=== PATIENT | female | born 1980 | race Two or more races ===

== ENCOUNTER 2017-02-04 17:25 | Emergency (ER) | payer BC ==
[~2017-02-04] VITALS: Ht 160 cm; Wt 72.6 kg
--- NOTE | 2017-02-04 17:35 | NUR ---
PATIENT PRESENTS TO ER C/O ANXIETY. PATIENT IS A/OX 4, BREATHING EVEN AND UNLABORED ON ROOM AIR. NO SOB. VITALS STABLE. AWAITING MD ORDERS.
--- NOTE | 2017-02-04 17:44 | NUR ---
CALLED [facility] FOR PSYCH EVAL, ETA 1 HOUR
[2017-02-04] MEDS ORDERED: LORAZEPAM 1 MG TABLET PO ONE (18:00)
[2017-02-04] MEDS ORDERED: LORAZEPAM 1 MG TABLET ONE (18:01)
--- NOTE | 2017-02-04 18:10 | NUR ---
[facility]AN ADMINISTERED PO PER MD ORDERS
[2017-02-04 18:12] LABS: BASOPHILS # (AUTO) 0.3 /CMM (0.0-0.2); BASOPHILS % (AUTO) 3.2 % (0.0-2.0); EOSINOPHILS # (AUTO) 0.2 /CMM (0.0-0.7); EOSINOPHILS % (AUTO) 1.8 % (0.0-6.0); HEMATOCRIT 41 % (33-45); HEMOGLOBIN 13.7 g/dL (11.5-14.8); LYMPHOCYTES # (AUTO) 2.1 /CMM (0.8-4.8); LYMPHOCYTES % (AUTO) 21.3 % (20.0-44.0); MEAN CORPUSCULAR HEMOGLOBIN 32 PG (26.0-33.0); MEAN CORPUSCULAR HGB CONC 34 g/dl (31.0-36.0); MEAN CORPUSCULAR VOLUME 96 fL (82-100); MONOCYTES # (AUTO) 0.6 /CMM (0.1-1.30); MONOCYTES % (AUTO) 6.3 % (2.0-12.0); NEUTROPHILS # (AUTO) 6.9 /CMM (1.8-8.9); NEUTROPHILS % (AUTO) 67.4 % (43.0-81.0); PLATELET COUNT (AUTO) 254 /CMM (150-450); RDW COEFFICIENT OF VARIATION 14.1 (11.5-15.0); RED BLOOD CELL COUNT(AUTO) 4.24 MIL/uL (4.0-5.2); WHITE BLOOD COUNT (AUTO) 10.1 K/uL (4.3-11.0)
--- NOTE | 2017-02-04 18:15 | NUR ---
URINE OBTAINED AND SENT TO LAB.
[2017-02-04 18:19] LABS: APPEARANCE,URINE Clear (CLEAR); BILIRUBIN,URINE Negative (NEGATIVE); BLOOD, URINE Small Ery/uL (NEGATIVE); COLOR,URINE Yellow (YELLOW); KETONES,URINE Negative (NEGATIVE); LEUKOCYTE ESTERASE ,URINE Trace (NEGATIVE); NITRITE, URINE Negative (NEGATIVE); PROTEIN,URINE Trace mg/dl (NEGATIVE); UGLUCOSE Negative (NEGATIVE)
[2017-02-04 18:20] LABS: CALCIUM, SERUM 9.4 mg/dL (8.5-10.1); CARBON DIOXIDE 26 mmol/L (21-32); CHLORIDE 101 mmol/L (98-107); CREATININE 0.7 mg/dL (0.6-1.3); GLUCOSE 128 mg/dL (74-106); POTASSIUM 3.2 mmol/L (3.5-5.1); SODIUM SERUM 139 mmol/L (136-145); UREA NITROGEN, BLOOD 6 mg/dL (7-18)
[2017-02-04 18:26] LABS: ALANINE AMINOTRANSFERASE 203 U/L (12-78); ALBUMIN 3.6 g/dL (3.4-5.0); ALCOHOL, BLOOD < 3 mg/dL (0-0); ALKALINE PHOSPHATASE 101 U/L (46-116); ASPARTATE AMINOTRANSFERASE 258 U/L (15-37); BILIRUBIN,DIRECT 0.3 mg/dL (0.0-0.2); BILIRUBIN,TOTAL 1.3 mg/dL (0.2-1.0); TOTAL PROTEIN, SERUM 8.2 g/dL (6.4-8.2)
[2017-02-04 18:29] LABS: ACETAMINOPHEN < 2 ug/ml (10-30); SALICYLATE < 2.8 mg/dL (2.8-20.0)
--- NOTE | 2017-02-04 18:42 | NUR ---
[facility] AT BEDSIDE FOR PSYCH EVAL.
[2017-02-04 18:45] LABS: BACTERIA,URINE Few /HPF (None Seen); SQUAMOUS EPITHELIAL CELL,UR Few /HPF (None Seen)
[2017-02-04] MEDS ORDERED: POTASSIUM CHLORIDE 20 MEQ TAB.PRT.SR PO ONE ×2 (19:00)
--- NOTE | 2017-02-04 19:15 | NUR ---
ENDORSED TO [facility] FOR [facility].
--- NOTE | 2017-02-04 19:15 | NUR ---
PT APPEARS TO BE RESTING COMFORTABLY WITH NO S/S OF PAIN OR DISTRESS.
--- NOTE | 2017-02-04 20:03 | NUR ---
PT REC'D JUICE, A SANDWICH, JELLO, AND PUDDING.
--- NOTE | 2017-02-04 20:30 | NUR ---
SPOKE TO KAREEM GALDAMEZ AT [facility] RE: PT'S K+ LEVEL 3.2. DENICE WAS INFORMED THAT PT REC'D 40 MEQ K+ PO.
--- NOTE | 2017-02-04 20:32 | NUR ---
PT IS GOING TO [facility], PER MAGDIEL CUEVAS. PT WAS ACCEPTED.
--- NOTE | 2017-02-04 21:01 | NUR ---
REPORT KAREEM BURNETTE AT [facility].
--- NOTE | 2017-02-04 21:05 | NUR ---
Patient discharged to [facility] in stable condition. Written and verbal after care instructions given. Patient verbalizes understanding of instruction. PT LEFT WITH ALL PAPERWORK TO [facility]. PT WAS ACCEPTED BY DR. CORTEZ
[2017-02-04 21:09] VITALS: BP 127/85
== END 2017-02-04 21:09 ==
LOC: ER 17:27
DX: R45.851 Suicidal ideations (principal); E87.6 Hypokalemia; R74.0 Nonspecific elevation of levels of transaminase and lactic acid dehydrogenase [LDH]; F41.9 Anxiety disorder, unspecified; F32.9 Major depressive disorder, single episode, unspecified; E11.9 Type 2 diabetes mellitus without complications; Z88.8 Allergy status to other drugs, medicaments and biological substances
CPT/HCPCS: 36415; 80048; 80076; 80305; 80329; 81001; 84703; 85025; 99285; A4606 ×2; G0480 ×2; Z7610; 81000-TC

== ENCOUNTER 2019-08-04 01:59 | Emergency (ER) | payer BC, MEDICAID ==
[~2019-08-04] VITALS: Ht 167.6 cm; Wt 77.1 kg
[~2019-08-04 01:59] MED LIST: FLUO10CA26 PO; QUET25TA PO
--- NOTE | 2019-08-04 02:03 | NUR ---
PT CAME TO ER BED 3 C/O ALCHOL WITHDRAWALS. PT VERBALLY NON-RESPONSIVE TO STAFF WHEN ASKED QUESTIONS. PT HAS TREMORS. AAOX4. NO SOB. BREATHING EVENLY AND UNLABORED. CONNECTED TO MONITOR.
--- NOTE | 2019-08-04 02:09 | NUR ---
PT ABLE TO SPEAK ICELANDIC. STATES THAT "I DRINK ALL DAY EVERYDAY". STATES THAT SHE DRINKS BECAUSE SHE GETS INTO ARGUMENTS WITH HER MOM. 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
--- NOTE | 2019-08-04 02:34 | NUR ---
URINE COLLECTED FROM BED SWANSON AND SENT TO LAB FOR TESTING
--- NOTE | 2019-08-04 02:37 | NUR ---
BLOOD DRAWN BY SENIOR DIRECTOR OF STRATEGY AND SENT TO LAB.
[2019-08-04 02:59] LABS: APPEARANCE,URINE Slightly Cloudy (CLEAR); BILIRUBIN,URINE Negative (NEGATIVE); BLOOD, URINE Large Ery/uL (NEGATIVE); COLOR,URINE Yellow (YELLOW); KETONES,URINE Negative (NEGATIVE); LEUKOCYTE ESTERASE ,URINE Negative (NEGATIVE); NITRITE, URINE Negative (NEGATIVE); PH,URINE 5.5 (5.0-8.0); PROTEIN,URINE Negative (NEGATIVE); UGLUCOSE Negative (NEGATIVE); UROBILINOGEN,URINE 0.2 EU/dL (0.2)
[2019-08-04 03:00] LABS: BASOPHILS # (AUTO) 0.1 /CMM (0.0-0.2); BASOPHILS % (AUTO) 1.2 % (0.0-2.0); EOSINOPHILS % (AUTO) 4.5 % (0.0-6.0); HEMATOCRIT 41 % (33-45); HEMOGLOBIN 13.5 g/dL (11.5-14.8); LYMPHOCYTES # (AUTO) 3.5 /CMM (0.8-4.8); LYMPHOCYTES % (AUTO) 50.8 % (20.0-44.0); MEAN CORPUSCULAR HGB CONC 33 g/dl (31.0-36.0); MEAN CORPUSCULAR VOLUME 89 fL (82-100); MONOCYTES # (AUTO) 0.4 /CMM (0.1-1.30); MONOCYTES % (AUTO) 6.6 % (2.0-12.0); NEUTROPHILS # (AUTO) 2.5 /CMM (1.8-8.9); NEUTROPHILS % (AUTO) 36.9 % (43.0-81.0); PLATELET COUNT (AUTO) 402 /CMM (150-450); RED BLOOD CELL COUNT(AUTO) 4.63 MIL/uL (4.0-5.2); WHITE BLOOD COUNT (AUTO) 6.8 K/uL (4.3-11.0)
[2019-08-04 03:06] LABS: CALCIUM, SERUM 8.4 mg/dL (8.5-10.1); CREATININE 0.5 mg/dL (0.6-1.3); POTASSIUM 3.2 mmol/L (3.5-5.1)
[2019-08-04 03:10] LABS: BACTERIA,URINE Few /HPF (None Seen); SQUAMOUS EPITHELIAL CELL,UR Few /HPF (None Seen); WBC,URINE 0-2 /HPF (0-3)
[2019-08-04 03:12] LABS: ALBUMIN 3.4 g/dL (3.4-5.0); BILIRUBIN,DIRECT 0.2 mg/dL (0.0-0.2); BILIRUBIN,TOTAL 0.7 mg/dL (0.2-1.0); SALICYLATE 0.9 mg/dL (2.8-20.0); TOTAL PROTEIN, SERUM 8.1 g/dL (6.4-8.2)
--- NOTE | 2019-08-04 04:07 | NUR ---
PATIENT SLEEPING COMFORTABLY IN BED. NOT IN ANY RESPIRATORY DISTRESS. CONNECTED TO MONITOR. BREATHING EVENLY AND UNLABORED. CALL LIGHT WITHIN REACH.
--- NOTE | 2019-08-04 07:57 | NUR ---
A/OX4, GIVEN WATER. NO DISTRESS NOTED.
--- NOTE | 2019-08-04 10:00 | NUR ---
For discharge attempted to call family for cook pickled meat- left messages. Pt updated now stating that "I have had mental issues in past been on hold/5150 before and im a danger to self." +Suicidal thoughts now- denies any plan. MD notified
--- NOTE | 2019-08-04 10:10 | NUR ---
PATIENT VERBALIZED "I WANT TO KILL MYSELF, BY OVERDOSING ON ALCOHOL, AND I USED TO CUT" DR. BOSE MADE AWARE.
--- NOTE | 2019-08-04 10:16 | NUR ---
[facility] [phone]
--- NOTE | 2019-08-04 11:35 | NUR ---
MOM AT BEDSIDE.
--- NOTE | 2019-08-04 11:52 | NUR ---
SHARMILA MOTHER [phone]
--- NOTE | 2019-08-04 11:56 | NUR ---
[facility] CALLED AGAIN [phone]
--- NOTE | 2019-08-04 13:43 | NUR ---
KAT AT BEDSIDE
[2019-08-04] MEDS ORDERED: LORAZEPAM 1 MG TABLET PO ONE (15:00)
[2019-08-04] MEDS ORDERED: LORAZEPAM 1 MG TABLET ONE (15:11)
--- NOTE | 2019-08-04 17:45 | NUR ---
PER [facility], CLINICALS ARE STILL BEING REVIEWED, NO BED AVAILABLE AT THIS TIME.
--- NOTE | 2019-08-04 19:12 | NUR ---
PENDING ACCEPTED TO [facility], INFO STILL PENDING.
--- NOTE | 2019-08-04 21:49 | NUR ---
TRANSFER INFORMATION PT ACCEPTED TO [facility] ACCEPTING MD: DR. WIGGINS BED ASSIGNMENT 108-A NUMBER FOR REPORT: [phone]
--- NOTE | 2019-08-04 21:52 | NUR ---
[facility] ETA 0000
[2019-08-04 23:22] VITALS: BP 149/69
--- NOTE | 2019-08-04 23:23 | NUR ---
GAVE REPORT TO [facility] UN[address] FOR TRANSPORTATION BILL[facility]
--- NOTE | 2019-08-04 23:23 | NUR ---
GAVE REPORT TO SOFIYA FROM [facility] FOR [facility]
== END 2019-08-04 23:24 ==
LOC: ER 02:00
DX: F10.129 Alcohol abuse with intoxication, unspecified (principal); J45.909 Unspecified asthma, uncomplicated; E11.9 Type 2 diabetes mellitus without complications; Y90.0 Blood alcohol level of less than 20 mg/100 ml; Z79.899 Other long term (current) drug therapy; Z88.8 Allergy status to other drugs, medicaments and biological substances
CPT/HCPCS: 36415; 80048; 80076; 80305; 80307 ×2; 80329; 81001; 83690; 84703; 85025; 99285; G0480; 81000-TC

== ENCOUNTER 2020-02-27 12:20 | Emergency (ER) | payer MEDICAID ==
[~2020-02-27] VITALS: Ht 154.9 cm; Wt 83.9 kg
--- NOTE | 2020-02-27 13:13 | NUR ---
[email or web address] home, suicidal plan to od on meds. admits to etoh. PT AAOX3, VSS. RR EVEN & UNALBORED. DENIES CP, SOB, DIZZINESS, N/V AT THIS TIME. PT SEEN & EVAL'D BY DR. STONE. SITTER AT BS & WILL CONT TO MONITOR. LABS DRAWN & SENT TO LAB.
[2020-02-27 13:19] LABS: BASOPHILS # (AUTO) 0.1 /CMM (0.0-0.2); BASOPHILS % (AUTO) 0.8 % (0.0-2.0); EOSINOPHILS % (AUTO) 0.2 % (0.0-6.0); HEMATOCRIT 37 % (33-45); LYMPHOCYTES # (AUTO) 3.5 /CMM (0.8-4.8); LYMPHOCYTES % (AUTO) 19.1 % (20.0-44.0); MEAN CORPUSCULAR HGB CONC 33 g/dl (31.0-36.0); MEAN CORPUSCULAR VOLUME 88 fL (82-100); MONOCYTES # (AUTO) 1.5 /CMM (0.1-1.30); MONOCYTES % (AUTO) 8.1 % (2.0-12.0); NEUTROPHILS % (AUTO) 71.8 % (43.0-81.0); PLATELET COUNT (AUTO) 459 /CMM (150-450); RED BLOOD CELL COUNT(AUTO) 4.21 MIL/uL (4.0-5.2); WHITE BLOOD COUNT (AUTO) 18.2 K/uL (4.3-11.0)
[2020-02-27 13:23] LABS: APPEARANCE,URINE Clear (CLEAR); BILIRUBIN,URINE Negative (NEGATIVE); BLOOD, URINE Negative Ery/uL (NEGATIVE); COLOR,URINE Yellow (YELLOW); KETONES,URINE Trace (NEGATIVE); LEUKOCYTE ESTERASE ,URINE Negative (NEGATIVE); NITRITE, URINE Negative (NEGATIVE); PH,URINE 5.5 (5.0-8.0); PROTEIN,URINE 100 mg/dl (NEGATIVE); UGLUCOSE Negative (NEGATIVE); UROBILINOGEN,URINE 0.2 EU/dL (0.2)
[2020-02-27 13:24] LABS: BACTERIA,URINE Few /HPF (None Seen); RBC,URINE 0-2 /HPF (0-2); SQUAMOUS EPITHELIAL CELL,UR Few /HPF (None Seen); WBC,URINE 0-2 /HPF (0-3)
[2020-02-27 13:29] LABS: CALCIUM, SERUM 9.1 mg/dL (8.5-10.1); CREATININE 0.7 mg/dL (0.6-1.3); POTASSIUM 3.3 mmol/L (3.5-5.1)
[2020-02-27 13:33] LABS: ALBUMIN 3.9 g/dL (3.4-5.0); BILIRUBIN,DIRECT 0.2 mg/dL (0.0-0.2); BILIRUBIN,TOTAL 0.6 mg/dL (0.2-1.0); TOTAL PROTEIN, SERUM 8.4 g/dL (6.4-8.2)
[2020-02-27 13:34] LABS: SALICYLATE 1.1 mg/dL (2.8-20.0)
[2020-02-27] MEDS ORDERED: QUETIAPINE FUMARATE 100 MG TABLET PO STA (14:14)
[2020-02-27] MEDS ORDERED: ESCITALOPRAM OXALATE (10 MG) 10 MG TABLET PO ONE (14:30)
[2020-02-27] MEDS ORDERED: ESCITALOPRAM OXALATE (10 MG) 10 MG TABLET ONE (14:34)
--- NOTE | 2020-02-27 14:44 | NUR ---
PT CALM & COOPERATIVE, WATCHING TV, NAD NOTED AT THIS TIME. MEDICATED PER ERMD ORDER. SITTER AT BS & WILL CONT TO MONITOR.
--- NOTE | 2020-02-27 17:00 | NUR ---
Patient is resting comfortably in bed with eyes closed. Easily aroused. VSS
--- NOTE | 2020-02-27 19:40 | NUR ---
CLINICAL INFORMATION FAXED TO [facility]
--- NOTE | 2020-02-27 20:20 | NUR ---
ADMISSION FORMS GIVEN TO ADMITTING DEPARTMENT FOR ER OBS
[2020-02-27] MEDS ORDERED: LORAZEPAM 1 MG TABLET ONE (21:04)
[2020-02-27] MEDS ORDERED: IBUPROFEN 400 MG TABLET ONE (21:05)
--- NOTE | 2020-02-27 21:10 | NUR ---
PT MEDICATED PER ERMD ORDER, PT JUANY WELL. NAD NOTED AT THIS TIME.
[2020-02-27] MEDS ORDERED: IBUPROFEN 400 MG TABLET PO ONE (21:30)
[2020-02-27] MEDS ORDERED: LORAZEPAM 1 MG TABLET PO ONE (21:30)
--- NOTE | 2020-02-27 21:35 | NUR ---
SUKHWINDER ROSA FROM [facility] INTAKE, REQUESTING POTASSIUM REPLACEMENT AND TEST. WILL FAX RESULTS WHEN FINAL
[2020-02-27] MEDS ORDERED: POTASSIUM CHLORIDE 20 MEQ TAB.PRT.SR PO ONE ×2 (22:00→22:41)
--- NOTE | 2020-02-28 00:07 | NUR ---
PT ACCEPTED TO [facility] MD: DR. WIGGINS NUMBER FOR REPORT: [phone] UN[address] [facility] ETA 0130
--- NOTE | 2020-02-28 00:23 | NUR ---
REPORT GIVEN TO KAREEM VICK FROM [facility] FOR BILLY
[2020-02-28 01:45] VITALS: BP 124/80
--- NOTE | 2020-02-28 01:45 | NUR ---
REPORT GIVEN TO [facility] FOR TRANSPORTATION BILLY
== END 2020-02-28 01:46 ==
LOC: ER 12:23
DX: R45.851 Suicidal ideations (principal); F32.9 Major depressive disorder, single episode, unspecified; F41.9 Anxiety disorder, unspecified; J45.909 Unspecified asthma, uncomplicated; Z88.8 Allergy status to other drugs, medicaments and biological substances; Z79.899 Other long term (current) drug therapy
CPT/HCPCS: 36415; 80048; 80076; 80305; 80307; 80329; 81001; 84703; 85025; 99285; G0480; 81000-TC

== ENCOUNTER 2020-08-31 09:35 | Emergency (ER) | payer MEDICAID ==
[~2020-08-31] VITALS: Ht 157.5 cm; Wt 73.9 kg
[2020-08-31 09:35] VITALS: BP 147/95
--- NOTE | 2020-08-31 10:00 | NUR ---
AT BEDSIDE FOR EVAL
--- NOTE | 2020-08-31 10:31 | NUR ---
Patient discharged to home in stable condition. Written and verbal after care instructions given. Patient verbalizes understanding of instruction.
== END 2020-08-31 10:48 | disposition home or self-care (01) ==
LOC: ER 09:38
DX: Z00.8 Encounter for other general examination (principal); J45.909 Unspecified asthma, uncomplicated; E11.9 Type 2 diabetes mellitus without complications; F15.90 Other stimulant use, unspecified, uncomplicated; Z88.8 Allergy status to other drugs, medicaments and biological substances; Z79.899 Other long term (current) drug therapy

== ENCOUNTER 2022-10-04 20:48 | Inpatient (IN) | payer MEDICAID ==
[~2022-10-04] VITALS: Ht 157.5 cm; Wt 74.8 kg
--- NOTE | 2022-10-05 02:18 | NUR ---
GENERATOR REPAIRER NOTE NOTIFIED DR. RUTH THAT PATIENT JUST ARRIVED AT THE UNIT.WAITING FOR ORDERS.
[2022-10-05 02:20] VITALS: BP 138/74
--- NOTE | 2022-10-05 02:20 | NUR ---
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
--- NOTE | 2022-10-05 02:30 | NUR ---
DEADENERIRONMOLDER NOTE PT ARRIVED AT THE UNIT ON THE GURNEY. SHE IS ALERT AND ORIENTED, AO X 4. IV ACCESS IS AT HER R AC, #20G, SL. FLUSHED WELL. IV IS PATENT AND INTACT. UPON ARRIVAL, VITAL SIGNS WERE TAKEN, WNL. NIHSS ASSESSMENT IS DONE. DURING THE ASSESSMENT, HER LOWER PART OF THE FACE IS DEVIATED TOWARD HER LEFT SIDE OF THE FACE WHEN MAKING SMILING FACE. IN GENERAL, RIGHT SIDE UPPER EXTREMITY IS WEAKER THAN HER LEFT SIDE; AND PT STATS SHE IS RIGHT HANDED. NO SLURRED SPEECH. SWALLOW EVALUATION INITIAL TESTING IS DONE. NO S/S OF DIFFICULTY IN SWALLOWING OR DRINKING WATER. 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 INTRODUCED THE PT WITH SURROUNDINGS. SAFETY MEASURES ARE IN PLACED: BED IN LOWEST AND LOCKED POSITION; CALL LIGHT AND TABLE ARE WITHIN REACH; SIDE RAILS UP X 2. INSTRUCTED THE PT TO CALL WHEN SHE NEEDS HELP. WILL CONTINUE MONITORING THE PT AND PROVIDE THE CARE PT NEEDS.
[2022-10-05] MEDS ORDERED: METF-440 PO (03:17)
[2022-10-05] MEDS ORDERED: OMEP20TA20 PO (03:18)
[2022-10-05] MEDS ORDERED: ATOR10TA PO (03:18)
[2022-10-05] MEDS ORDERED: BENA40TA67 PO (03:18)
[2022-10-05] MEDS ORDERED: ZOLPIDEM TARTRATE 5 MG TABLET PO PRN (03:30)
[2022-10-05] MEDS ORDERED: MAGNESIUM HYDROXIDE 30 ML UDC PO PRN (03:30)
[2022-10-05] MEDS ORDERED: MAG HYDROX/AL HYDROX/SIMETH 30 ML UDC PO PRN (03:30)
[2022-10-05] MEDS ORDERED: ACETAMINOPHEN 325 MG TABLET PO PRN (03:30)
[2022-10-05] MEDS ORDERED: Z GUARD REMEDY 4 OZ OINT TP PRN (03:30)
[2022-10-05] MEDS: ENOXAPARIN SODIUM 40 MG/0.4 ML DISP.SYRIN SQ SCH ×2 (04:17→21:05)
[2022-10-05 07:33] LABS: THYROID STIMULATING HORMONE 1.214 uIU/mL (0.358-3.74)
--- NOTE | 2022-10-05 07:53 | NUR ---
MAINTENANCE GROUNDMAN NOTES PT IN BED, AWAKE, ALERT AND ORIENTED, NO COMPLAINT OF PAIN OR ANY DISCOMFORT, CALL LIGHT WITHIN REACH, NEEDS ATTENDED.
[2022-10-05 08:00] VITALS: BP 126/74
--- NOTE | 2022-10-05 08:00 | NUR ---
[facility] NOTE PT IS SLEEPING IN BED, EASILY BEING AROUSED. PT IS ON RA, TOLERATED WELL. NO S/S OF DISTRESS OR SOB. SHE IS ALERT AND ORIENTED, AO X 4. IV ACCESS IS PATENT AND INTACT. PT DENIES OF HAVING ANY DISCOMFORT OR PAIN. PT'S MEDICATION WITH HER UPON ADMISSION WERE PACKED AND SEND TO THE PHARMACY. 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 SAFETY MEASURES ARE IN PLACED: BED IN LOWEST AND LOCKED POSITION; SIDE RAILS UP X 2; CALL LIGHT AND TABLE ARE WITHIN REACH. ENDORSED THE NEXT SHIFT NURSE FOR CONTINUING PT CARE.
--- NOTE | 2022-10-05 08:15 | NUR ---
TEXT DR. PRATER AT 0619 AM FOR MRI APPROVAL.
--- NOTE | 2022-10-05 08:18 | NUR ---
MRI ON HOLD FOR NOW ,DR PRATER WILL LET KNOW.
[2022-10-05] MEDS ORDERED: ALBU8.5H8 IH (08:21)
[2022-10-05] MEDS ORDERED: MULT-447 PO (08:21)
[2022-10-05] MEDS ORDERED: IBUP-1957 PO (08:21)
[2022-10-05] MEDS: ASPIRIN 81 MG TAB.CHEW PO SCH (08:40)
[2022-10-05] MEDS: PANTOPRAZOLE 40 MG TABLET.DR PO SCH (08:40)
[2022-10-05] MEDS: ONDANSETRON HCL/PF 4 MG/2 ML VIAL IVP PRN ×2 (10:18→18:19)
[2022-10-05 10:25] LABS: BASOPHILS % (AUTO) 0.7 % (0.0-2.0); EOSINOPHILS % (AUTO) 1.1 % (0.0-6.0); HEMATOCRIT 36 % (33-45); HEMOGLOBIN 11.7 g/dL (11.5-14.8); LYMPHOCYTES # (AUTO) 2.8 K/uL (0.8-4.8); LYMPHOCYTES % (AUTO) 38.8 % (20.0-44.0); MEAN CORPUSCULAR HGB CONC 33 g/dl (31.0-36.0); MEAN CORPUSCULAR VOLUME 84 fL (82-100); MONOCYTES # (AUTO) 0.7 K/uL (0.1-1.30); MONOCYTES % (AUTO) 9.1 % (2.0-12.0); NEUTROPHILS # (AUTO) 3.7 K/uL (1.8-8.9); NEUTROPHILS % (AUTO) 50.3 % (43.0-81.0); PLATELET COUNT (AUTO) 343 K/uL (150-450); WHITE BLOOD COUNT (AUTO) 7.3 K/uL (4.3-11.0)
[2022-10-05] MEDS ORDERED: DEXTROSE 50%-WATER 50 ML DISP.SYRIN IV PRN (10:30)
[2022-10-05 10:46] LABS: CALCIUM, SERUM 8.7 mg/dL (8.5-10.1); POTASSIUM 3.2 mmol/L (3.5-5.1)
[2022-10-05 10:47] LABS: ALBUMIN 3.5 g/dL (3.4-5.0); BILIRUBIN,TOTAL 1.1 mg/dL (0.2-1.0); CREATININE 0.7 mg/dL (0.6-1.3); TOTAL PROTEIN, SERUM 7.4 g/dL (6.4-8.2)
[2022-10-05] MEDS: LORAZEPAM 0.5 MG TABLET PO PRN ×2 (10:59→19:58)
[2022-10-05 11:30] VITALS: BP 134/82
[2022-10-05] MEDS: BLOOD SUGAR DIAGNOSTIC 1 EACH STRIP IN SCH ×3 (11:43→21:26)
--- NOTE | 2022-10-05 11:47 | NUR ---
SURVEYOR NOTES PT SEEN AND EXAMINED BY CLAUS MARTIN FOR DR. EDMOND, PLAN OF CARE DISCUSSED WITH PT, VERBALIZED UNDERSTANDING.
[2022-10-05] MEDS ORDERED: IBUPROFEN 800 MG TABLET PO PRN (12:30)
[2022-10-05] MEDS ORDERED: IBUPROFEN 400 MG TABLET PO PRN (12:30)
[2022-10-05] MEDS ORDERED: ALBUTEROL FS 2.5 MG/3 ML VIAL.NEB NEB PRN (12:30)
[2022-10-05] MEDS ORDERED: POTASSIUM CHLORIDE 10 MEQ TABLET.SA PO ONE (12:30)
--- NOTE | 2022-10-05 13:47 | NUR ---
[facility] CONTACT FOR DC : SW received call from LUPILLO Dinh who stated she can be called at tel [phone] (8 AM -5: 30PM) OR ON-CALL CELL PHONE FOR AFTER HOURS [phone] when pt. is ready to DC as pt. is one of the residents at their nursing home. Allegra states the pt. was supposed to go to detox this morning. Allegra will communicate with [facility] about possibly assisting with detox after pt. is ready for discharge.
[2022-10-05] MEDS: FOLIC ACID 1 MG TABLET PO SCH (14:53)
[2022-10-05] MEDS: THIAMINE HCL 100 MG TABLET PO SCH (14:53)
[2022-10-05 16:00] VITALS: BP 131/87
[2022-10-05] MEDS: CHLORDIAZEPOXIDE HCL 25 MG CAPSULE PO SCH (16:52)
[2022-10-05 17:20] LABS: BILIRUBIN,URINE NEGATIVE (NEGATIVE); COLOR,URINE YELLOW (YELLOW); LEUKOCYTE ESTERASE ,URINE TRACE (NEGATIVE); NITRITE, URINE NEGATIVE (NEGATIVE); PROTEIN,URINE NEGATIVE (NEGATIVE); UGLUCOSE NEGATIVE (NEGATIVE); UROBILINOGEN,URINE 0.2 EU/dL (0.2)
[2022-10-05 17:35] LABS: BACTERIA,URINE Few /HPF (None Seen); RBC,URINE NONE SEEN /HPF (0-2); SQUAMOUS EPITHELIAL CELL,UR Moderate /HPF (None Seen); WBC,URINE 0-2 /HPF (0-3)
--- NOTE | 2022-10-05 18:09 | NUR ---
CUSTOMER SERVICE CONSULTANT NOTES PT IN BED, AWAKE, ALERT AND ORIENTED, NO COMPLAINT AT THIS TIME, NOT IN DISTRESS, AMBULATES INSIDE HER ROOM AND TO THE BATHROOM WITH SLOW AND STEADY GAIT, NO CHANGE IN LOC NOTED, NEUROCHECKS DONE ORDERED, DUE MEDS GIVEN ORDERED, NEEDS ATTENDED.
--- NOTE | 2022-10-05 19:34 | NUR ---
RN OPENING NOTES; RECEIVED PT IN BED AAOX4 ABLE TO MAKE NEEDS KNOWN,ON RA JUANY WELL SAT 99%,NO SOB/DISTRESS NOTED,NO COMPLAIN OF PAIN/DISCOMFORT AT THIS TIME,IV ACCESS ON RAC 20G SL,INTACT AND PATENT,AMBULATORY WITH STEADY GAIT NOTED,SAFETY MEASURE IN PLACE,CALL LIGHT WITHIN REACH,WILL CONTINUE TO MONITOR.
[2022-10-05 20:00] VITALS: BP 145/88
[2022-10-05] MEDS: INSULIN REGULAR, HUMAN 100 UNIT/ML 3 ML VIAL SQ PRN (21:26)
--- NOTE | 2022-10-05 21:40 | NUR ---
RN NOTES; PATIENT ASKING ATIVAN FOR ALCOHOL WITHDRAWAL,PRN ATIVAN 0.5MG WAS GIVEN.
[2022-10-05] MEDS ORDERED: ATORVASTATIN 40 MG TABLET PO SCH (22:00)
[2022-10-06] VITALS: BP 127/83
[2022-10-06 06:01] LABS: BASOPHILS # (AUTO) 0.1 K/uL (0.0-0.2); BASOPHILS % (AUTO) 1.4 % (0.0-2.0); EOSINOPHILS % (AUTO) 1.6 % (0.0-6.0); HEMATOCRIT 34 % (33-45); HEMOGLOBIN 11.2 g/dL (11.5-14.8); LYMPHOCYTES # (AUTO) 2.1 K/uL (0.8-4.8); LYMPHOCYTES % (AUTO) 24.8 % (20.0-44.0); MEAN CORPUSCULAR HGB CONC 33 g/dl (31.0-36.0); MEAN CORPUSCULAR VOLUME 84 fL (82-100); MONOCYTES # (AUTO) 0.6 K/uL (0.1-1.30); MONOCYTES % (AUTO) 6.7 % (2.0-12.0); NEUTROPHILS # (AUTO) 5.5 K/uL (1.8-8.9); NEUTROPHILS % (AUTO) 65.5 % (43.0-81.0); PLATELET COUNT (AUTO) 316 K/uL (150-450); RED BLOOD CELL COUNT(AUTO) 4.11 MIL/uL (4.0-5.2); WHITE BLOOD COUNT (AUTO) 8.3 K/uL (4.3-11.0)
[2022-10-06 06:23] VITALS: BP 144/86
--- NOTE | 2022-10-06 06:28 | NUR ---
RN CLOSING NOTES; PT IN BED AAOX4 ABLE TO MAKE NEEDS KNOWN,ON RA JUANY WELL SAT 98.6%,NO SOB/DISTRESS NOTED,NO COMPLAIN OF PAIN/DISCOMFORT DURING SHIFT,IV ACCESS ON RAC 20G SL,INTACT AND PATENT,DUE MEDS GIVEN ORDER,ALL NEEDS ATTENDED,AMBULATORY WITH STEADY GAIT NOTED,SAFETY MEASURE IN PLACE,CALL LIGHT WITHIN REACH,WILL ENDORSED TO NEXT SHIFT
[2022-10-06] MEDS: BLOOD SUGAR DIAGNOSTIC 1 EACH STRIP IN SCH ×3 (06:39→17:03)
[2022-10-06 06:52] LABS: CALCIUM, SERUM 8.7 mg/dL (8.5-10.1); CREATININE 0.7 mg/dL (0.6-1.3); PHOSPHORUS 3.9 mg/dL (2.5-4.9); POTASSIUM 3.2 mmol/L (3.5-5.1)
--- NOTE | 2022-10-06 06:54 | NUR ---
MRI APPROVED BY DR. PRAETR, DIRECTOR MEDICAL SCIENCE NOTIFIED VIA TEXT
--- NOTE | 2022-10-06 07:22 | NUR ---
LEAD SOFTWARE TEST ENGINEER NOTES PT IN BED, AWAKE, ALERT AND ORIENTED, DENIES PAIN AT THIS TIME, STILL COMPLAINS OF NUMBNESS ON THE RIGHT SIDE, CALM AND COOPERATIVE, CALL LIGHT WITHIN REACH.
[2022-10-06 08:00] VITALS: BP 127/88
[2022-10-06] MEDS: THIAMINE HCL 100 MG TABLET PO SCH (08:05)
[2022-10-06] MEDS: LORAZEPAM 0.5 MG TABLET PO PRN (08:05)
[2022-10-06] MEDS: ASPIRIN 81 MG TAB.CHEW PO SCH (08:06)
[2022-10-06] MEDS: CHLORDIAZEPOXIDE HCL 25 MG CAPSULE PO SCH ×2 (08:06→16:44)
[2022-10-06] MEDS: FOLIC ACID 1 MG TABLET PO SCH (08:06)
[2022-10-06] MEDS: PANTOPRAZOLE 40 MG TABLET.DR PO SCH (08:06)
[2022-10-06] MEDS ORDERED: MULTIVIT W/MINERALS 1 TAB TABLET PO SCH (09:00)
[2022-10-06] MEDS ORDERED: POTASSIUM CHLORIDE 10 MEQ TABLET.SA PO ONE (10:00)
[2022-10-06] MEDS ORDERED: CHLO25CA22 PO (11:54)
[2022-10-06 16:00] VITALS: BP 125/91
[2022-10-06] MEDS: INSULIN REGULAR, HUMAN 100 UNIT/ML 3 ML VIAL SQ PRN (17:03)
[2022-10-06] MEDS ORDERED: ASPI-1169 PO (17:06)
--- NOTE | 2022-10-06 18:15 | NUR ---
JOB COACHING NOTES PT IN BED, AWAKE, ALERT AND ORIENTED, DENIES PAIN, NOT IN DISTRESS, AMBULATES INSIDE HER ROOM WITH STEADY GAIT, SEEN BY DR. NATION TODAY, SEEN BY CLAUS MARTIN FOR NEUROLOGY, MRI BRAIN DONE WITH NEGATIVE RESULTS, PT CLEARED FOR DISCHARGE BY NEUROLOGY, DISCHARGE ORDER GIVEN BY DR. NATION, DISCHARGE AND MEDICATION INSTRUCTIONS PROVIDED TO PT, VERBALIZED UNDERSTANDING, BELONGINGS ACCOUNTED FOR, PT'S INSURANCE RISK ANALYST AWARE OF DISCHARGE PLAN, PT AWAITING FOR HER RIDE GOING TO HER FACILITY.
--- NOTE | 2022-10-06 18:42 | NUR ---
SETTLEMENT WORKER NOTES PT CALLED FOR HER RIDE GOING BACK TO HER FACILITY, ASSISTED PT TO HOSPITAL LOBBY, PT IN STABLE CONDITION.
== END 2022-10-06 18:45 | disposition home or self-care (01) | DRG 47 ==
LOC: TELE 10-05 02:07
PROVIDERS: ADMIT Nurse Practitioner Family; ATTEND Nurse Practitioner Family
DX: G45.9 Transient cerebral ischemic attack, unspecified (principal); D75.839 Thrombocytosis, unspecified; E11.9 Type 2 diabetes mellitus without complications; E87.6 Hypokalemia; F10.129 Alcohol abuse with intoxication, unspecified; F10.139 Alcohol abuse with withdrawal, unspecified; I10 Essential (primary) hypertension; M79.7 Fibromyalgia; F15.10 Other stimulant abuse, uncomplicated; G47.33 Obstructive sleep apnea (adult) (pediatric); G51.0 Bell's palsy; Y90.0 Blood alcohol level of less than 20 mg/100 ml; R53.1 Weakness; R47.1 Dysarthria and anarthria; Z88.1 Allergy status to other antibiotic agents; Z79.84 Long term (current) use of oral hypoglycemic drugs; R29.704 NIHSS score 4
CPT/HCPCS: 36415; 70551-TC; 80048-TC; 80053-TC; 80061-TC; 81001; 82962-TC; 83735-TC; 84100-TC; 84443-TC; 84703-TC; 85025-TC; 87081-TC; 92526; 92611-TC; 93307-TC; 97116-TC; 97530-TC; G0378; G0480; J1650; J1815; J2405

== ENCOUNTER 2023-03-04 17:02 | Inpatient (IN) | payer MEDICAID, OTHER ==
[~2023-03-04] VITALS: Ht 154.9 cm; Wt 77.6 kg
[~2023-03-04 17:02] MED LIST changes: +ALBU8.5H8 IH; +ASPI-1169 PO; +ATOR10TA PO; +BENA40TA67 PO; +CHLO25CA22 PO; -FLUO10CA26 PO; +IBUP-1957 PO; +METF-440 PO; +MULT-447 PO; +OMEP20TA20 PO; -QUET25TA PO
[2023-03-04 17:44] LABS: BASOPHILS # (AUTO) 0.1 K/uL (0.0-0.2); BASOPHILS % (AUTO) 1.1 % (0.0-2.0); EOSINOPHILS % (AUTO) 0.4 % (0.0-6.0); HEMATOCRIT 37 % (33-45); HEMOGLOBIN 11.9 g/dL (11.5-14.8); LYMPHOCYTES % (AUTO) 39.4 % (20.0-44.0); MEAN CORPUSCULAR HEMOGLOBIN 27 PG (26.0-33.0); MEAN CORPUSCULAR HGB CONC 32 g/dl (31.0-36.0); MEAN CORPUSCULAR VOLUME 84 fL (82-100); MONOCYTES # (AUTO) 0.9 K/uL (0.1-1.30); MONOCYTES % (AUTO) 9.3 % (2.0-12.0); NEUTROPHILS % (AUTO) 49.8 % (43.0-81.0); PLATELET COUNT (AUTO) 436 K/uL (150-450); RED BLOOD CELL COUNT(AUTO) 4.44 MIL/uL (4.0-5.2); RED CELL DISTRIBUTION WIDTH 17.7 % (11.5-15.0); WHITE BLOOD COUNT (AUTO) 10.1 K/uL (4.3-11.0)
[2023-03-04 17:52] LABS: CALCIUM, SERUM 8.5 mg/dL (8.5-10.1); CARBON DIOXIDE 22 mmol/L (21-32); CHLORIDE 101 mmol/L (98-107); CREATININE 0.6 mg/dL (0.6-1.3); GLUCOSE 164 mg/dL (74-106); SODIUM SERUM 139 mmol/L (136-145); UREA NITROGEN, BLOOD 3 mg/dL (7-18)
[2023-03-04 17:53] LABS: POTASSIUM 2.7 mmol/L (3.5-5.1)
[2023-03-04 17:59] LABS: ACETAMINOPHEN <10 ug/ml (10-30); ALANINE AMINOTRANSFERASE 77 U/L (12-78); ALBUMIN 3.5 g/dL (3.4-5.0); ALCOHOL, BLOOD 165 mg/dL (0-10); ALKALINE PHOSPHATASE 77 U/L (46-116); ASPARTATE AMINOTRANSFERASE 38 U/L (15-37); BILIRUBIN,DIRECT 0.1 mg/dL (0.0-0.2); BILIRUBIN,TOTAL 0.6 mg/dL (0.2-1.0); SALICYLATE < 2.3 mg/dL (2.8-20.0); TOTAL PROTEIN, SERUM 8.2 g/dL (6.4-8.2)
[2023-03-04] MEDS: POTASSIUM CHLORIDE 20 MEQ TAB.PRT.SR PO ONE ×2 (18:30→19:14)
[2023-03-04] MEDS ORDERED: POTASSIUM CL. PREMIX PERIPHER. 50 ML ONE ×3 (18:51→21:02)
[2023-03-04] MEDS ORDERED: POTASSIUM CHLORIDE 20 MEQ TAB.PRT.SR PO ONE (18:52)
[2023-03-04] MEDS: POTASSIUM CL. PREMIX PERIPHER. 50 ML IV SCH ×4 (19:10→21:56)
[2023-03-04 21:11] LABS: APPEARANCE,URINE CLEAR (CLEAR); BILIRUBIN,URINE NEGATIVE (NEGATIVE); BLOOD, URINE NEGATIVE Ery/uL (NEGATIVE); COLOR,URINE YELLOW (YELLOW); KETONES,URINE NEGATIVE (NEGATIVE); LEUKOCYTE ESTERASE ,URINE NEGATIVE (NEGATIVE); NITRITE, URINE NEGATIVE (NEGATIVE); PROTEIN,URINE NEGATIVE (NEGATIVE); UGLUCOSE NEGATIVE (NEGATIVE); UROBILINOGEN,URINE 0.2 EU/dL (0.2)
[2023-03-04 21:14] LABS: PREGNANCY TEST URINE QUAL NEGATIVE (NEGATIVE)
[2023-03-04 21:20] LABS: AMPHETAMINE, URINE NEGATIVE (NEGATIVE); BARBITURATE, URINE NEGATIVE (NEGATIVE); BENZODIAZEPINE, URINE NEGATIVE (NEGATIVE); CANNABINOID, URINE NEGATIVE (NEGATIVE); COCCAINE, URINE NEGATIVE (NEGATIVE); OPIATE, URINE NEGATIVE (NEGATIVE); PHENCYCLIDINE SCREEN,URINE NEGATIVE (NEGATIVE)
[2023-03-05] MEDS ORDERED: ONDANSETRON HCL/PF 4 MG/2 ML VIAL ONE (01:18)
[2023-03-05] MEDS ORDERED: ONDANSETRON HCL/PF 4 MG/2 ML VIAL IV ONE (01:30)
[2023-03-05] MEDS ORDERED: Z GUARD REMEDY 4 OZ OINT TP PRN (04:30)
[2023-03-05] MEDS ORDERED: MAGNESIUM HYDROXIDE 30 ML UDC PO PRN (04:30)
[2023-03-05] MEDS ORDERED: MAG HYDROX/AL HYDROX/SIMETH 30 ML UDC PO PRN (04:30)
[2023-03-05] MEDS ORDERED: POTASSIUM CHLORIDE 20 MEQ TAB.PRT.SR PO ONE ×3 (04:30→05:32)
[2023-03-05] MEDS ORDERED: ACETAMINOPHEN 325 MG TABLET PO PRN (04:30)
[2023-03-05 05:57] LABS: BASOPHILS # (AUTO) 0.1 K/uL (0.0-0.2); BASOPHILS % (AUTO) 0.9 % (0.0-2.0); EOSINOPHILS # (AUTO) 0.1 K/uL (0.0-0.7); EOSINOPHILS % (AUTO) 1.6 % (0.0-6.0); HEMATOCRIT 35 % (33-45); HEMOGLOBIN 11.6 g/dL (11.5-14.8); LYMPHOCYTES # (AUTO) 3.7 K/uL (0.8-4.8); MEAN CORPUSCULAR HEMOGLOBIN 28 PG (26.0-33.0); MEAN CORPUSCULAR HGB CONC 33 g/dl (31.0-36.0); MEAN CORPUSCULAR VOLUME 83 fL (82-100); MONOCYTES # (AUTO) 0.8 K/uL (0.1-1.30); MONOCYTES % (AUTO) 10.7 % (2.0-12.0); NEUTROPHILS # (AUTO) 2.8 K/uL (1.8-8.9); NEUTROPHILS % (AUTO) 37.8 % (43.0-81.0); PLATELET COUNT (AUTO) 400 K/uL (150-450); RED BLOOD CELL COUNT(AUTO) 4.22 MIL/uL (4.0-5.2); RED CELL DISTRIBUTION WIDTH 17.4 % (11.5-15.0); WHITE BLOOD COUNT (AUTO) 7.5 K/uL (4.3-11.0)
[2023-03-05 06:12] LABS: CALCIUM, SERUM 8.3 mg/dL (8.5-10.1); CREATININE 0.5 mg/dL (0.6-1.3); MAGNESIUM 1.9 mg/dL (1.8-2.4)
[2023-03-05 06:37] LABS: POTASSIUM 2.7 mmol/L (3.5-5.1)
[2023-03-05] MEDS: ONDANSETRON HCL/PF 4 MG/2 ML VIAL IVP PRN ×2 (09:16→10:03)
[2023-03-05] MEDS: Magnesium 1GM/D5W 100ML PREMIX 100 ML IV SCH ×2 (09:16→10:36)
[2023-03-05] MEDS ORDERED: VENL75TA4 PO (11:28)
[2023-03-05] MEDS ORDERED: ATOR10TA PO (11:28)
[2023-03-05] MEDS ORDERED: QUET100T PO (11:28)
[2023-03-05] MEDS ORDERED: CLON0.1T PO (11:28)
[2023-03-05 12:00] VITALS: BP 120/80; TEMP 98
[2023-03-05] MEDS: CHLORDIAZEPOXIDE HCL 25 MG CAPSULE PO SCH ×2 (15:16→20:06)
[2023-03-05] MEDS: IV NS 0.9% 1,000 ML IV PRN (15:33)
[2023-03-05 16:00] VITALS: BP 125/80; TEMP 98
[2023-03-05] MEDS: ONDANSETRON HCL/PF 4 MG/2 ML VIAL IV PRN (18:15)
[2023-03-05 20:00] VITALS: BP 132/79; TEMP 98.8; O2SAT 100
[2023-03-05] MEDS: ZOLPIDEM TARTRATE 5 MG TABLET PO PRN (23:20)
[2023-03-06] MEDS: IV NS 0.9% 1,000 ML IV PRN ×2 (02:33→18:12)
[2023-03-06 04:00] VITALS: BP 107/68; TEMP 98.9; O2SAT 96
[2023-03-06] MEDS: CHLORDIAZEPOXIDE HCL 25 MG CAPSULE PO SCH ×3 (04:17→21:24)
[2023-03-06 06:16] LABS: BASOPHILS # (AUTO) 0.1 K/uL (0.0-0.2); EOSINOPHILS # (AUTO) 0.2 K/uL (0.0-0.7); EOSINOPHILS % (AUTO) 3.1 % (0.0-6.0); HEMATOCRIT 37 % (33-45); HEMOGLOBIN 12.1 g/dL (11.5-14.8); LYMPHOCYTES # (AUTO) 2.4 K/uL (0.8-4.8); LYMPHOCYTES % (AUTO) 30.9 % (20.0-44.0); MEAN CORPUSCULAR HEMOGLOBIN 28 PG (26.0-33.0); MEAN CORPUSCULAR HGB CONC 33 g/dl (31.0-36.0); MEAN CORPUSCULAR VOLUME 84 fL (82-100); MONOCYTES # (AUTO) 0.5 K/uL (0.1-1.30); MONOCYTES % (AUTO) 6.1 % (2.0-12.0); NEUTROPHILS # (AUTO) 4.5 K/uL (1.8-8.9); NEUTROPHILS % (AUTO) 58.9 % (43.0-81.0); PLATELET COUNT (AUTO) 350 K/uL (150-450); RED BLOOD CELL COUNT(AUTO) 4.38 MIL/uL (4.0-5.2); RED CELL DISTRIBUTION WIDTH 17.3 % (11.5-15.0); WHITE BLOOD COUNT (AUTO) 7.6 K/uL (4.3-11.0)
[2023-03-06 06:39] LABS: CALCIUM, SERUM 8.4 mg/dL (8.5-10.1); CREATININE 0.6 mg/dL (0.6-1.3); MAGNESIUM 2.3 mg/dL (1.8-2.4); PHOSPHORUS 3.4 mg/dL (2.5-4.9); POTASSIUM 3.3 mmol/L (3.5-5.1)
[2023-03-06] MEDS: ONDANSETRON HCL/PF 4 MG/2 ML VIAL IV PRN ×2 (09:35→18:10)
[2023-03-06] MEDS ORDERED: POTASSIUM CHLORIDE 20 MEQ TAB.PRT.SR PO SCH (11:30)
[2023-03-06 16:00] VITALS: BP 127/77; TEMP 98.2; O2SAT 100
[2023-03-06] MEDS: ZOLPIDEM TARTRATE 5 MG TABLET PO PRN (21:24)
[2023-03-07] VITALS: BP 144/85; TEMP 98; O2SAT 100
[2023-03-07 04:00] VITALS: BP 83/41; TEMP 98.2; O2SAT 100
[2023-03-07] MEDS: CHLORDIAZEPOXIDE HCL 25 MG CAPSULE PO SCH ×2 (05:42→12:53)
[2023-03-07] MEDS: ONDANSETRON HCL/PF 4 MG/2 ML VIAL IV PRN ×2 (06:00→12:53)
[2023-03-07] MEDS: IV NS 0.9% 1,000 ML IV PRN (06:23)
[2023-03-07 06:24] LABS: BASOPHILS % (AUTO) 0.6 % (0.0-2.0); EOSINOPHILS # (AUTO) 0.3 K/uL (0.0-0.7); EOSINOPHILS % (AUTO) 3.4 % (0.0-6.0); HEMATOCRIT 35 % (33-45); HEMOGLOBIN 11.6 g/dL (11.5-14.8); LYMPHOCYTES # (AUTO) 2.5 K/uL (0.8-4.8); LYMPHOCYTES % (AUTO) 31.6 % (20.0-44.0); MEAN CORPUSCULAR HEMOGLOBIN 27 PG (26.0-33.0); MEAN CORPUSCULAR HGB CONC 33 g/dl (31.0-36.0); MEAN CORPUSCULAR VOLUME 84 fL (82-100); MONOCYTES # (AUTO) 0.4 K/uL (0.1-1.30); MONOCYTES % (AUTO) 5.5 % (2.0-12.0); NEUTROPHILS # (AUTO) 4.7 K/uL (1.8-8.9); NEUTROPHILS % (AUTO) 58.9 % (43.0-81.0); PLATELET COUNT (AUTO) 376 K/uL (150-450); RED BLOOD CELL COUNT(AUTO) 4.22 MIL/uL (4.0-5.2); RED CELL DISTRIBUTION WIDTH 16.8 % (11.5-15.0)
[2023-03-07 06:33] LABS: CALCIUM, SERUM 8.4 mg/dL (8.5-10.1); CREATININE 0.6 mg/dL (0.6-1.3); MAGNESIUM 1.8 mg/dL (1.8-2.4); POTASSIUM 3.2 mmol/L (3.5-5.1)
[2023-03-07 08:00] VITALS: BP 111/51; TEMP 98.2; O2SAT 99
[2023-03-07] MEDS ORDERED: IV NS 0.9% 500 ML IV ONE (10:00)
[2023-03-07] MEDS: POTASSIUM CHLORIDE 20 MEQ TAB.PRT.SR PO SCH ×2 (11:46→12:45)
[2023-03-07 12:00] VITALS: BP 150/90; TEMP 98.5; O2SAT 99
[2023-03-07 14:00] VITALS: BP 133/86; TEMP 98.2; O2SAT 99
[2023-03-07 15:09] LABS: CALCIUM, SERUM 8.7 mg/dL (8.5-10.1); CREATININE 0.6 mg/dL (0.6-1.3); POTASSIUM 3.9 mmol/L (3.5-5.1)
[2023-03-07 16:00] VITALS: BP 133/86; TEMP 98.2
== END 2023-03-07 18:00 | DRG 425 ==
LOC: ER 17:14 → TELE-TD 03-05 07:54 → TELE1 03-05 08:12
PROVIDERS: ADMIT Nurse Practitioner Acute Care; ATTEND Nurse Practitioner Acute Care
DX: E87.6 Hypokalemia (principal); G92.9 Unspecified toxic encephalopathy; E44.1 Mild protein-calorie malnutrition; F33.3 Major depressive disorder, recurrent, severe with psychotic symptoms; Y90.6 Blood alcohol level of 120-199 mg/100 ml; Z20.822 Contact with and (suspected) exposure to COVID-19; R45.851 Suicidal ideations; I10 Essential (primary) hypertension; E11.9 Type 2 diabetes mellitus without complications; Z98.891 History of uterine scar from previous surgery; Z88.1 Allergy status to other antibiotic agents; Z79.51 Long term (current) use of inhaled steroids; Z79.84 Long term (current) use of oral hypoglycemic drugs; Z79.899 Other long term (current) drug therapy; E88.09 Other disorders of plasma-protein metabolism, not elsewhere classified; Z79.82 Long term (current) use of aspirin; F60.9 Personality disorder, unspecified; Z82.49 Family history of ischemic heart disease and other diseases of the circulatory system; F41.9 Anxiety disorder, unspecified; F10.129 Alcohol abuse with intoxication, unspecified; F10.139 Alcohol abuse with withdrawal, unspecified
CPT/HCPCS: 36415; 80048-TC; 80076-TC; 83735-TC; 84100-TC; 84132-TC; 84703-TC; 85025-TC; A4223; C9803; G0378; G0480; J2405; J3475; J3480; J7030; J7040

== ENCOUNTER 2024-10-15 15:18 | Emergency (ER) | payer OTHER ==
[~2024-10-15] VITALS: Ht 154.9 cm; Wt 74.8 kg
[~2024-10-15 15:18] MED LIST changes: -ASPI-1169 PO; -CHLO25CA22 PO; +CLON0.1T PO; -MULT-447 PO; +QUET100T PO; +VENL75TA4 PO
[2024-10-15 15:45] LABS: BASOPHILS # (AUTO) 0.1 K/uL (0.0-0.2); BASOPHILS % (AUTO) 0.9 % (0.0-2.0); EOSINOPHILS # (AUTO) 0.1 K/uL (0.0-0.7); HEMATOCRIT 34 % (33-45); HEMOGLOBIN 11.5 g/dL (11.5-14.8); LYMPHOCYTES % (AUTO) 23.9 % (20.0-44.0); MEAN CORPUSCULAR HEMOGLOBIN 27 PG (26.0-33.0); MEAN CORPUSCULAR HGB CONC 34 g/dl (31.0-36.0); MEAN CORPUSCULAR VOLUME 81 fL (82-100); MONOCYTES # (AUTO) 0.8 K/uL (0.1-1.30); MONOCYTES % (AUTO) 9.7 % (2.0-12.0); NEUTROPHILS # (AUTO) 5.5 K/uL (1.8-8.9); NEUTROPHILS % (AUTO) 64.5 % (43.0-81.0); PLATELET COUNT (AUTO) 287 K/uL (150-450); RED BLOOD CELL COUNT(AUTO) 4.22 MIL/uL (4.0-5.2); RED CELL DISTRIBUTION WIDTH 17.4 % (11.5-15.0); WHITE BLOOD COUNT (AUTO) 8.5 K/uL (4.3-11.0)
[2024-10-15 15:59] LABS: CALCIUM, SERUM 9.2 mg/dL (8.5-10.1); CREATININE 0.7 mg/dL (0.6-1.3); POTASSIUM 3.8 mmol/L (3.5-5.1)
[2024-10-15 16:04] LABS: ALBUMIN 3.6 g/dL (3.4-5.0); BILIRUBIN,TOTAL 1.3 mg/dL (0.2-1.0); TOTAL PROTEIN, SERUM 7.8 g/dL (6.4-8.2)
[2024-10-15] MEDS ORDERED: CARB200C6 PO (16:53)
[2024-10-15] MEDS ORDERED: PRED50TA PO (16:53)
[2024-10-15] MEDS ORDERED: CARBAMAZEPINE 200 MG TABLET ONE (16:57)
[2024-10-15] MEDS: CARBAMAZEPINE 200 MG TABLET PO ONE (16:58)
[2024-10-15 17:04] VITALS: BP 126/70; TEMP 98.7; O2SAT 98
== END 2024-10-15 16:55 | disposition home or self-care (01) ==
LOC: ER 15:20
DX: G50.0 Trigeminal neuralgia (principal); R51.9 Headache, unspecified; E11.9 Type 2 diabetes mellitus without complications; I10 Essential (primary) hypertension; Z79.84 Long term (current) use of oral hypoglycemic drugs; Z79.899 Other long term (current) drug therapy; Z88.1 Allergy status to other antibiotic agents
CPT/HCPCS: 36415; 80053-TC; 85025-TC